=== PATIENT | female | born 1945 | race African-American/Black ===

== ENCOUNTER 2017-09-04 08:02 | Inpatient (IN) | payer MEDICARE ==
[~2017-09-04] VITALS: Ht 167.6 cm; Wt 61.8 kg
[2017-09-04] VITALS (11 sets, daily range): BP systolic 111–127; BP diastolic 58–85
[~2017-09-04 08:02] MED LIST: LEVE500T19 PO; MAGN400T27 PO; MIRT-91 PO
[2017-09-04] MEDS ORDERED: SODIUM CHLORIDE 0.9% 1,000 ML IV ONE (08:16)
[2017-09-04 08:49] LABS: CHLORIDE 108 mEq/L (98-107)
[2017-09-04 08:50] LABS: INR 1.1; PROTHROMBIN TIME 11.9 sec (9.4-11.6)
[2017-09-04 08:54] LABS: BASOPHILS % 0.4 % (0.0-2.0); EOSINOPHILS % 3.1 % (0.0-5.0); MEAN CORPUSCULAR HEMOGLOBIN 32.4 pg (28.0-32.0); MEAN CORPUSCULAR VOLUME 95.4 fL (81.0-99.0); MEAN PLATELET VOLUME 6.8 fl (7.4-10.4); MONOCYTES % 9.9 % (2.0-8.0); NEUTROPHILS % 54.6 % (40.0-76.0); PLATELET 216 x1000/uL (130-400); RED BLOOD CELL COUNT 2.11 mill/uL (4.2-5.4); RED CELL DISTRIBUTION WIDTH 16.1 % (11.6-14.6)
[2017-09-04 08:57] LABS: HEMOGLOBIN. 6.8 g/dL (12.0-16.0)
[2017-09-04 08:58] LABS: HEMATOCRIT. 20.1 % (36.0-48.0)
[2017-09-04 09:00] LABS: CARBON DIOXIDE 28 mEq/L (21-32); TROPONIN I 0.16 ng/mL (0.00-0.04)
[2017-09-04 10:49] LABS: CLARITY URINE TURBID (CLEAR); COLOR URINE YELLOW (YELLOW); GLUCOSE URINE NEGATIVE (NEGATIVE); KETONES URINE NEGATIVE (NEGATIVE); LEUKOCYTE ESTERASE URINE 3+ (NEGATIVE); NITRITE URINE NEGATIVE (NEGATIVE); OCCULT BLOOD URINE 2+ (NEGATIVE); PROTEIN URINE 1+ (NEGATIVE); SPECIFIC GRAVITY URINE 1.018 (1.005-1.030); UROBILINOGEN URINE 0.2 E.U./dL (0.2-1.0)
[2017-09-04] MEDS ORDERED: LEVOFLOXACIN 750MG PREMIX 150 ML IV ONE (13:15)
[2017-09-04] MEDS ORDERED: NIFE30TA94 PO (14:45)
[2017-09-04] MEDS ORDERED: CARV6.2548 PO (14:46)
[2017-09-04] MEDS ORDERED: ONDANSETRON HCL 4MG/2ML VIAL IV PRN (15:15)
[2017-09-04 18:02] LABS: TOTAL IRON BINDING CAPACITY 83 ug/dL (250-450)
[2017-09-04 18:32] LABS: FOLIC ACID (FOLATE) SERUM 19.8 ng/mL (>5.38)
[2017-09-05] VITALS (19 sets, daily range): BP systolic 105–150; BP diastolic 64–89
[2017-09-05] MEDS: LEVOFLOXACIN 250MG PREMIX 50 ML IV SCH ×2 (01:27→21:08)
[2017-09-05] MEDS: PANTOPRAZOLE SODIUM 40 MG/VIAL IV SCH ×2 (01:35→08:22)
[2017-09-05 06:54] LABS: BASOPHILS % 0.1 % (0.0-2.0); EOSINOPHILS % 0.6 % (0.0-5.0); HEMATOCRIT. 36.7 % (36.0-48.0); HEMOGLOBIN. 12.4 g/dL (12.0-16.0); LYMPHOCYTES % 12.1 % (20.0-50.0); MEAN PLATELET VOLUME 6.8 fl (7.4-10.4); MONOCYTES % 8.6 % (2.0-8.0); NEUTROPHILS % 78.6 % (40.0-76.0); PLATELET 185 x1000/uL (130-400); RED BLOOD CELL COUNT 4.12 mill/uL (4.2-5.4); RED CELL DISTRIBUTION WIDTH 17.4 % (11.6-14.6)
[2017-09-05 08:21] LABS: TROPONIN I 0.13 ng/mL (0.00-0.04)
[2017-09-05] MEDS ORDERED: PANTOPRAZOLE SODIUM 40 MG/VIAL IV SCH (09:00)
[2017-09-05] MEDS ORDERED: INSULIN DETEMIR UD 100 UNITS/ML SYR SUBCUT SCH (10:00)
[2017-09-05] MEDS: DEXT 5%/0.45% NACL 1000ML 1,000 ML IV SCH (10:08)
[2017-09-05 10:47] LABS: AMMONIA < 10 uMol/L (<32)
[2017-09-05] MEDS ORDERED: DEXTROSE 50% WATER 50ML SYRINGE IV PRN (11:15)
[2017-09-05 11:45] LABS: T4 FREE 1.28 ng/dL (0.76-1.46)
[2017-09-05 12:01] LABS: CLARITY URINE TURBID (CLEAR); COLOR URINE YELLOW (YELLOW); GLUCOSE URINE NEGATIVE (NEGATIVE); KETONES URINE 1+ (NEGATIVE); LEUKOCYTE ESTERASE URINE 3+ (NEGATIVE); NITRITE URINE NEGATIVE (NEGATIVE); OCCULT BLOOD URINE 2+ (NEGATIVE); PROTEIN URINE 1+ (NEGATIVE); UROBILINOGEN URINE 0.2 E.U./dL (0.2-1.0)
[2017-09-05] MEDS ORDERED: BLOOD SUGAR DIAGNOSTIC STRIP TEST SCH (12:30)
[2017-09-05] MEDS ORDERED: INSULIN LISPRO 100 UNITS/ML SUBCUT SCH (13:00)
[2017-09-06] VITALS (17 sets, daily range): BP systolic 112–141; BP diastolic 72–88
[2017-09-06] MEDS: DEXT 5%/0.45% NACL 1000ML 1,000 ML IV SCH (05:41)
[2017-09-06] MEDS: PANTOPRAZOLE SODIUM 40 MG/VIAL IV SCH (08:17)
[2017-09-06 08:52] LABS: CARBON DIOXIDE 23 mEq/L (21-32); CHLORIDE 110 mEq/L (98-107)
[2017-09-06 09:46] LABS: BASOPHILS % 0.1 % (0.0-2.0); EOSINOPHILS % 1.6 % (0.0-5.0); HEMATOCRIT. 38.3 % (36.0-48.0); HEMOGLOBIN. 13.1 g/dL (12.0-16.0); LYMPHOCYTES % 19.8 % (20.0-50.0); MEAN CORPUSCULAR HEMOGLOBIN 30.5 pg (28.0-32.0); MEAN CORPUSCULAR VOLUME 89.2 fL (81.0-99.0); MEAN PLATELET VOLUME 6.8 fl (7.4-10.4); MONOCYTES % 8.3 % (2.0-8.0); NEUTROPHILS % 70.2 % (40.0-76.0); PLATELET 186 x1000/uL (130-400); RED BLOOD CELL COUNT 4.29 mill/uL (4.2-5.4); RED CELL DISTRIBUTION WIDTH 17.4 % (11.6-14.6)
[2017-09-06] MEDS ORDERED: KCL 20MEQ/100ML PREMIX 100 ML IV NR (13:00)
[2017-09-06] MEDS: LEVOFLOXACIN 250MG PREMIX 50 ML IV SCH (21:21)
[2017-09-06] MEDS: DOCUSATE SODIUM SUGAR FREE 100MG/10ML UDC NG SCH (21:22)
[2017-09-07] VITALS (12 sets, daily range): BP systolic 116–139; BP diastolic 72–90
[2017-09-07] MEDS: PANTOPRAZOLE SODIUM 40 MG/VIAL IV SCH (09:14)
[2017-09-07] MEDS: DOCUSATE SODIUM SUGAR FREE 100MG/10ML UDC NG SCH ×2 (09:14→18:51)
[2017-09-07] MEDS: DEXT 5%/0.45% NACL 1000ML 1,000 ML IV SCH ×2 (21:45→22:08)
[2017-09-07] MEDS: LEVOFLOXACIN 250MG PREMIX 50 ML IV SCH (22:08)
[2017-09-07] MEDS: AMLODIPINE 5MG TABLET PO SCH (22:08)
[2017-09-08] VITALS (12 sets, daily range): BP systolic 97–124; BP diastolic 61–73
[2017-09-08 06:30] LABS: CARBON DIOXIDE 24 mEq/L (21-32); CHLORIDE 109 mEq/L (98-107)
[2017-09-08 06:34] LABS: BASOPHILS % 0.2 % (0.0-2.0); EOSINOPHILS % 1.1 % (0.0-5.0); HEMATOCRIT. 35.5 % (36.0-48.0); HEMOGLOBIN. 11.8 g/dL (12.0-16.0); LYMPHOCYTES % 17.6 % (20.0-50.0); MEAN CORPUSCULAR HEMOGLOBIN 30.3 pg (28.0-32.0); MEAN CORPUSCULAR VOLUME 91.3 fL (81.0-99.0); MEAN PLATELET VOLUME 8.3 fl (7.4-10.4); NEUTROPHILS % 71.1 % (40.0-76.0); PLATELET 116 x1000/uL (130-400); RED BLOOD CELL COUNT 3.89 mill/uL (4.2-5.4); RED CELL DISTRIBUTION WIDTH 17.9 % (11.6-14.6)
[2017-09-08] MEDS: AMLODIPINE 5MG TABLET PO SCH ×2 (09:00→20:43)
[2017-09-08] MEDS: DOCUSATE SODIUM SUGAR FREE 100MG/10ML UDC NG SCH ×2 (09:26→17:00)
[2017-09-08] MEDS: PANTOPRAZOLE SODIUM 40 MG/VIAL IV SCH (09:26)
[2017-09-08] MEDS: ACETAMINOPHEN 650MG/20.3ML UDC NG PRN (13:00)
[2017-09-08] MEDS ORDERED: MORPHINE SULFATE 10 MG/ML CPJ IV PRN (16:58)
[2017-09-08] MEDS ORDERED: GENTAMICIN 120MG PREMIX 100 ML IV SCH (17:00)
[2017-09-08] MEDS: DEXT 5%/0.45% NACL 1000ML 1,000 ML IV SCH (20:39)
[2017-09-09] VITALS (12 sets, daily range): BP systolic 88–118; BP diastolic 56–72
[2017-09-09] MEDS: PANTOPRAZOLE SODIUM 40 MG/VIAL IV SCH (08:43)
[2017-09-09] MEDS: DOCUSATE SODIUM SUGAR FREE 100MG/10ML UDC NG SCH ×2 (08:44→17:00)
[2017-09-09] MEDS: AMLODIPINE 5MG TABLET PO SCH ×2 (08:44→21:00)
[2017-09-09] MEDS: GENTAMICIN 100MG PREMIX 50 ML IV SCH (08:54)
[2017-09-09 09:37] LABS: CARBON DIOXIDE 21 mEq/L (21-32); CHLORIDE 109 mEq/L (98-107)
[2017-09-09 13:49] LABS: BASOPHILS % 0.1 % (0.0-2.0); EOSINOPHILS % 2.3 % (0.0-5.0); HEMATOCRIT. 32.8 % (36.0-48.0); HEMOGLOBIN. 10.8 g/dL (12.0-16.0); LYMPHOCYTES % 16.4 % (20.0-50.0); MEAN CORPUSCULAR HEMOGLOBIN 29.5 pg (28.0-32.0); MEAN CORPUSCULAR VOLUME 90.2 fL (81.0-99.0); MEAN PLATELET VOLUME 7.8 fl (7.4-10.4); MONOCYTES % 12.8 % (2.0-8.0); NEUTROPHILS % 68.4 % (40.0-76.0); PLATELET 122 x1000/uL (130-400); RED BLOOD CELL COUNT 3.64 mill/uL (4.2-5.4); RED CELL DISTRIBUTION WIDTH 18.3 % (11.6-14.6)
[2017-09-09] MEDS: ACETAMINOPHEN 650MG/20.3ML UDC NG PRN (15:04)
[2017-09-09] MEDS: DEXT 5%/0.45% NACL 1000ML 1,000 ML IV SCH (18:19)
[2017-09-10] VITALS (12 sets, daily range): BP systolic 93–128; BP diastolic 57–75
[2017-09-10 06:58] LABS: HEMATOCRIT. 30.2 % (36.0-48.0); HEMOGLOBIN. 10.4 g/dL (12.0-16.0); MEAN CORPUSCULAR HEMOGLOBIN 31.1 pg (28.0-32.0); MEAN PLATELET VOLUME 7.5 fl (7.4-10.4); PLATELET 135 x1000/uL (130-400); RED BLOOD CELL COUNT 3.36 mill/uL (4.2-5.4); RED CELL DISTRIBUTION WIDTH 18.2 % (11.6-14.6)
[2017-09-10 07:02] LABS: CARBON DIOXIDE 26 mEq/L (21-32); CHLORIDE 107 mEq/L (98-107)
[2017-09-10] MEDS: PANTOPRAZOLE SODIUM 40 MG/VIAL IV SCH (08:52)
[2017-09-10] MEDS: DOCUSATE SODIUM SUGAR FREE 100MG/10ML UDC NG SCH ×2 (08:52→17:24)
[2017-09-10] MEDS: DEXT 5%/0.45% NACL 1000ML 1,000 ML IV SCH (08:53)
[2017-09-10] MEDS: GENTAMICIN 100MG PREMIX 50 ML IV SCH (08:54)
[2017-09-10] MEDS: AMLODIPINE 5MG TABLET PO SCH ×3 (09:00→21:00)
[2017-09-10 10:09] LABS: NUCLEATED RED BLOOD CELLS 1 /100 WBC
[2017-09-10 10:10] LABS: PLATELET ESTIMATE NORMAL
[2017-09-10] MEDS: MORPHINE SULFATE 10 MG/ML CPJ IV PRN (20:37)
[2017-09-11] VITALS (11 sets, daily range): BP systolic 93–111; BP diastolic 52–68
[2017-09-11] MEDS: DEXT 5%/0.45% NACL 1000ML 1,000 ML IV SCH (05:52)
[2017-09-11] MEDS: MORPHINE SULFATE 10 MG/ML CPJ IV PRN (05:56)
[2017-09-11 06:45] LABS: INR 1.1; PROTHROMBIN TIME 11.8 sec (9.4-11.6)
[2017-09-11] MEDS: AMLODIPINE 5MG TABLET PO SCH ×2 (09:00→21:00)
[2017-09-11] MEDS: PANTOPRAZOLE SODIUM 40 MG/VIAL IV SCH (09:19)
[2017-09-11] MEDS: DOCUSATE SODIUM SUGAR FREE 100MG/10ML UDC NG SCH ×2 (09:19→16:16)
[2017-09-11] MEDS: GENTAMICIN 80MG PREMIX 100 ML IV SCH (09:20)
[2017-09-11] MEDS ORDERED: SODIUM CHLORIDE 0.9% 10ML VIAL ONE (11:44)
[2017-09-11] MEDS ORDERED: SIMETHICONE 40 MG/0.6 ML 30ML ONE (11:44)
[2017-09-11] MEDS ORDERED: LEVOFLOXACIN 500MG PREMIX 100 ML IV NR (16:00)
[2017-09-11] MEDS ORDERED: FENTANYL CITRATE/PF 50MCG/ML 2ML VIAL ONE (18:45)
[2017-09-11] MEDS ORDERED: MIDAZOLAM HCL 5 MG/5 ML VIAL ONE (18:45)
[2017-09-11] MEDS ORDERED: MIDAZOLAM HCL 5 MG/5 ML VIAL IV PRN (19:07)
[2017-09-12] VITALS (14 sets, daily range): BP systolic 88–136; BP diastolic 50–77
[2017-09-12] MEDS: DEXT 5%/0.45% NACL 1000ML 1,000 ML IV SCH (02:23)
[2017-09-12 08:26] LABS: BASOPHILS % 0.2 % (0.0-2.0); HEMATOCRIT. 26.9 % (36.0-48.0); HEMOGLOBIN. 9.2 g/dL (12.0-16.0); LYMPHOCYTES % 25.9 % (20.0-50.0); MEAN CORPUSCULAR HEMOGLOBIN 30.7 pg (28.0-32.0); MEAN CORPUSCULAR VOLUME 90.1 fL (81.0-99.0); MEAN PLATELET VOLUME 7.2 fl (7.4-10.4); MONOCYTES % 11.8 % (2.0-8.0); NEUTROPHILS % 61.1 % (40.0-76.0); PLATELET 151 x1000/uL (130-400); RED BLOOD CELL COUNT 2.99 mill/uL (4.2-5.4); RED CELL DISTRIBUTION WIDTH 17.8 % (11.6-14.6)
[2017-09-12] MEDS: AMLODIPINE 5MG TABLET PO SCH (09:00)
[2017-09-12 09:09] LABS: CARBON DIOXIDE 26 mEq/L (21-32); CHLORIDE 107 mEq/L (98-107)
[2017-09-12] MEDS: PANTOPRAZOLE SODIUM 40 MG/VIAL IV SCH (09:54)
[2017-09-12] MEDS: DOCUSATE SODIUM SUGAR FREE 100MG/10ML UDC NG SCH (09:54)
[2017-09-12] MEDS: GENTAMICIN 80MG PREMIX 100 ML IV SCH (09:54)
== END 2017-09-12 18:45 | DRG 64 ==
LOC: ER 08:15 → 6WST 11:18 → ENRESERV 12:33 → 5EST 20:40
PROVIDERS: ADMIT Family Medicine Adult Medicine; ATTEND Family Medicine Adult Medicine
PROC: 30233N1 Transfusion of Nonautologous Red Blood Cells into Peripheral Vein, Percutaneous Approach (ICD-10-PCS; 2017-09-11)
PROC: 0DH63UZ Insertion of Feeding Device into Stomach, Percutaneous Approach (ICD-10-PCS; principal; 2017-09-11 17:00)
DX: I63.9 Cerebral infarction, unspecified (principal); E43 Unspecified severe protein-calorie malnutrition; N17.9 Acute kidney failure, unspecified; G92 Toxic encephalopathy; I82.413 Acute embolism and thrombosis of femoral vein, bilateral; I27.20 Pulmonary hypertension, unspecified; I48.91 Unspecified atrial fibrillation; K26.9 Duodenal ulcer, unspecified as acute or chronic, without hemorrhage or perforation; N39.0 Urinary tract infection, site not specified; I48.92 Unspecified atrial flutter; R13.10 Dysphagia, unspecified; D64.9 Anemia, unspecified; F03.90 Unspecified dementia, unspecified severity, without behavioral disturbance, psychotic disturbance, mood disturbance, and anxiety; I10 Essential (primary) hypertension; R62.7 Adult failure to thrive; Z51.5 Encounter for palliative care; B96.20 Unspecified Escherichia coli [E. coli] as the cause of diseases classified elsewhere; Z66 Do not resuscitate; Z85.038 Personal history of other malignant neoplasm of large intestine; Z85.09 Personal history of malignant neoplasm of other digestive organs; Z85.41 Personal history of malignant neoplasm of cervix uteri; Z85.42 Personal history of malignant neoplasm of other parts of uterus; Z86.73 Personal history of transient ischemic attack (TIA), and cerebral infarction without residual deficits; Z90.49 Acquired absence of other specified parts of digestive tract; Z87.11 Personal history of peptic ulcer disease; Z88.6 Allergy status to analgesic agent; Z88.0 Allergy status to penicillin; Z79.899 Other long term (current) drug therapy; Z92.21 Personal history of antineoplastic chemotherapy; Z68.22 Body mass index [BMI] 22.0-22.9, adult
CPT/HCPCS: 36415; 70450; 70551; 71010; 80048; 80053; 80170; 81001; 82140; 82270; 82378; 82607; 82728; 82746; 83036; 83540; 83550; 83605; 83721; 83735; 84439; 84443; 84481; 84484; 85025; 85610; 85730; 86301; 86850; 86900; 86920; 87040; 87077; 87086; 87186; 93005; 93306; 93880; 93970; 96360; 99291; A4216; A6261; C9113; J1580; J1815; J1956; J2250; J2270; J3010; J3480; J3490; J7030; J7040; J7050; P9016; A4315